=== PATIENT | female | born 1940 | race Caucasian/White ===

== ENCOUNTER → 2016-06-02 | Outpatient (CLI) | payer OTHER ==
--- NOTE | 2016-06-02 12:52 | DX ---
PA and lateral chest. Clinical History: Cough. Comparison Study: April 28, 2011.. Findings: The lungs are clear. No pleural disease identified. Heart size is normal. Perihilar bronchial wall thickening is present bilaterally suggestive of bronchitis, more pronounced on the right. Underlying hyperinflation suggests COPD.. Impression: Central bronchitis. Underlying COPD. Results called to Naa Pascal PA-C, at 12:45 PM..
== END ==
LOC: BRMIMAGING 11:49
PROVIDERS: ATTEND Physician Assistant Medical
DX: Z01.811 Encounter for preprocedural respiratory examination (principal); J40 Bronchitis, not specified as acute or chronic
CPT/HCPCS: 71020-PO